=== PATIENT | female | born 1975 | race African-American/Black ===

== ENCOUNTER 2018-03-12 04:00 | Observation (INO) | payer BC ==
[~2018-03-12] VITALS: Ht 167.6 cm; Wt 88.5 kg
[2018-03-12] MEDS ORDERED: ONDANSETRON 4 MG ODT TAB PO ONE (05:00)
[2018-03-12] MEDS ORDERED: TERBUTALINE SULFATE 1 MG/ML VIAL SUBCUT PRN (05:00)
[2018-03-12] MEDS ORDERED: D5LR 1,000 ML IV ONE (05:45)
[2018-03-12] MEDS ORDERED: ONDANSETRON HCL 4 MG/2 ML VIAL IVP ONE (05:45)
[2018-03-12] MEDS ORDERED: ONDANSETRON HCL 4 MG/2 ML VIAL ONE (06:00)
== END 2018-03-12 07:05 | disposition home or self-care (01) ==
LOC: SPU 04:00
PROVIDERS: ADMIT Obstetrics & Gynecology; ATTEND Obstetrics & Gynecology
DX: O26.892 Other specified pregnancy related conditions, second trimester (principal); R10.9 Unspecified abdominal pain; Z3A.25 25 weeks gestation of pregnancy
CPT/HCPCS: 81002; 96372; 96374; G0378; J2405; J3105; J7120; Q0162; 59899